=== PATIENT | female | born 1995 ===

== ENCOUNTER 2021-08-27 08:00 | Inpatient (IN) | payer BC, MEDICAID ==
[2021-08-28] MEDS ORDERED: Sodium Chloride 0.9% 20 ML SDV IV PRN (09:48)
[2021-08-28] MEDS ORDERED: Sodium Chloride 0.9% 2.5 ML Syringe FLUSH PRN (09:48)
[2021-08-28] MEDS ORDERED: ceFAZolin 2 GM in Premix Bag 1 BAG IV ONE (09:48)
[2021-08-28] MEDS ORDERED: Citric Acid/Sodium Citrate Solution 30 ML Cup PO ONE (09:48)
[2021-08-28] MEDS ORDERED: Sodium Chloride 0.9% 10 ML Syringe FLUSH PRN (09:48)
[2021-08-28] MEDS ORDERED: Octyl 2-Cyanoacrylate 1 Tube ONE (09:58)
[2021-08-28] MEDS ORDERED: Lactated Ringers 1,000 ML IV SCH ×2 (10:00→13:45)
[2021-08-28] MEDS ORDERED: Oxytocin/0.9 % Sodium Chloride 30 UNIT/500 ML BAG IV SCH (10:00)
[2021-08-28] MEDS ORDERED: fentaNYL 100 MCG/2 ML SDV ONE ×2 (11:44→12:44)
[2021-08-28] MEDS ORDERED: Famotidine 20 MG/2 ML SDV ONE (11:48)
[2021-08-28] MEDS ORDERED: Dexamethasone 4 MG/ML SDV ONE (11:48)
[2021-08-28] MEDS ORDERED: Ondansetron 4 MG/2 ML SDV ONE ×2 (11:48→13:16)
--- NOTE | 2021-08-28 12:01 | PCM.LDHP ---
L&D History of Present Illness - General Date of Service: 08/28/21 Admit Problem/Dx: Patient Status Order with Admit Dx/Problem 08/28/21 09:49 Patient Status [ADT] Routine Admission Diagnosis/Problem Admission Diagnosis/Problem Source of Information: Patient History Limitations: Reports: No Limitations - History of Present Illness Introduction:: 25yo @39w2d here for scheduled RLTCS. Patient has a h/o for CPD. This was otherwise unremarkable - Related Data Allergies/Adverse Reactions: Allergies Allergy/AdvReac Type Severity Reaction Status Date / Time No Known Allergies Allergy Verified 08/25/21 08:36 Home Medications: Home Meds Pnv No.95/Ferrous Fum/Folic AC [ Vitamin Tablet] 1 tab PO DAILY 08/25/21 [History] Past Medical History - Past Health History Medical/Surgical History: Denies Medical/Surgical History HEENT History: Reports: Other (See Below) Other HEENT History: wears glasses [employer] History: Reports: - Past Surgical History Head Surgeries/Procedures: Reports: None Female Surgical History: Reports: Section Social & Family History - Tobacco Use Tobacco Use Status *Q: Never Tobacco User - Recreational Drug Use Recreational Drug Use: No Drug Use in Last 12 Months: No H&P Review of Systems - Review of Systems: Review Of Systems: See Below General: Reports: No Symptoms HEENT: Reports: No Symptoms Pulmonary: Reports: No Symptoms Cardiovascular: Reports: No Symptoms Gastrointestinal: Reports: No Symptoms Genitourinary: Reports: No Symptoms Musculoskeletal: Reports: No Symptoms Skin: Reports: No Symptoms Psychiatric: Reports: No Symptoms Neurological: Reports: No Symptoms Hematologic/Lymphatic: Reports: No Symptoms Immunologic: Reports: No Symptoms L&D Exam - Exam Exam: See Below - Vital Signs Weight: 72.575 kg - OB Specific Contraction Intensity: Irritability Estimated Weight: 7 - Exam General: Alert, Oriented Lungs: Normal Respiratory Effort Cardiovascular: Regular Rate GI/Abdominal Exam: Soft, Non-Tender Extremities: Normal Inspection Psychiatric: Alert, Normal Affect, Normal Mood - Patient Data Lab Results Last 24 hrs: Laboratory Results - last 24 hr 08/28/21 08/28/21 Range/Units 10:30 10:30 WBC 11.05 H (4.0-11.0) K/uL RBC 3.95 L (4.30-5.90) M/uL Hgb 9.7 L (12.0-16.0) g/dL Hct 29.9 L (36.0-46.0) % MCV 75.7 L (80.0-98.0) fL MCH 24.6 L (27.0-32.0) pg MCHC 32.4 (31.0-37.0) g/dL RDW Std Deviation 40.3 (28.0-62.0) fl RDW Coeff of Gracia 15 (11.0-15.0) % Plt Count 273 (150-400) K/uL MPV 10.10 (7.40-12.00) fL Nucleated RBC % 0.0 /100WBC Nucleated RBCs # 0 K/uL Blood Type O POSITIVE Antibody Screen NEGATIVE Crossmatch See Detail Result Diagrams: 08/28/21 10:30 - Problem List (1) Term SNOMED Code(s): 94958095 ICD Code: Z34.90 - ENCNTR FOR SUPRVSN OF NORMAL , UNSP, UNSP TRIMESTER Status: Acute Current Visit: Yes (2) History of SNOMED Code(s): 949579559 ICD Code: Z98.891 - HISTORY OF UTERINE SCAR FROM PREVIOUS SURGERY Status: Acute Current Visit: Yes Problem List Initiated/Reviewed/Updated: Yes Orders Last 24hrs: Active Orders 24 hr Category Date Time Status Patient Status [ADT] Routine ADT 08/28/21 09:49 Active Antiembolic Devices [RC] PER UNIT ROUTINE Care 08/28/21 09:50 Active Insert Urinary Catheter [OM.PC] Routine Care 08/28/21 09:49 Ordered Notify Provider Vital Signs [RC] PRN Care 08/28/21 09:48 Active Procedure Site Prep Instruct [RC] ASDIRECTED Care 08/28/21 09:49 Active Up ad Farzaneh [RC] ASDIRECTED Care 08/28/21 09:49 Active Urinary Catheter Assessment [RC] ASDIRECTED Care 08/28/21 09:50 Active Verify Patient Consent Obtain [RC] ASDIRECTED Care 08/28/21 09:49 Active Vital Signs [RC] PER UNIT ROUTINE Care 08/28/21 09:49 Active CORONAVIRUS COVID-19 MICAH [MOLEC] Stat Lab 08/28/21 10:35 Received RED BLOOD CELLS LP [BBK] Routine Lab 08/28/21 10:30 Results RPR (SYPHILIS SERO) W/ RFLX [REF] Routine Lab 08/28/21 10:30 Received TYPE AND SCREEN [BBK] Routine Lab 08/28/21 10:30 Results Lactated Ringers [Ringers, Lactated] 1,000 ml Med 08/28/21 10:00 Active IV BOLUS Oxytocin/0.9 % Sodium Chloride [Oxytocin 30 Unit in NS Med 08/28/21 10:00 Active 0.9% 500 ML Premix] 30 unit in 500 ml IV TITRATE Sodium Chloride 0.9% [Normal Saline] Med 08/28/21 09:48 Active 10 ml IV ASDIRECTED PRN Sodium Chloride 0.9% [Saline Flush] Med 08/28/21 09:48 Active 10 ml FLUSH ASDIRECTED PRN Sodium Chloride 0.9% [Saline Flush] Med 08/28/21 09:48 Active 2.5 ml FLUSH ASDIRECTED PRN Peripheral IV Insertion Adult [OM.PC] Routine Oth 08/28/21 09:49 Ordered Schedule Procedure [COMM] Per Unit Routine Oth 08/28/21 09:49 Ordered Sequential Compression Device [OM.PC] Routine Oth 08/28/21 09:49 Ordered Resuscitation Status Routine Resus Stat 08/28/21 09:48 Ordered Medication Orders Oxytocin/Sodium Chloride (Oxytocin 30 Unit In Ns 0.9% 500 Ml Premix) 30 unit in 500 mls @ 250 mls/hr IV TITRATE EBONIE Lactated Ringer's (Ringers, Lactated) 1,000 mls @ 500 mls/hr IV BOLUS EBONIE Last Admin: 08/28/21 10:40 Dose: 500 mls/hr Documented by: JEM Sodium Chloride (Sodium Chloride 0.9% 10 Ml Syringe) 10 ml FLUSH ASDIRECTED PRN PRN Reason: Keep Vein Open Sodium Chloride (Sodium Chloride 0.9% 2.5 Ml Syringe) 2.5 ml FLUSH ASDIRECTED PRN PRN Reason: Keep Vein Open Sodium Chloride (Sodium Chloride 0.9% 20 Ml Sdv) 10 ml IV ASDIRECTED PRN PRN Reason: IV Use Assessment/Plan Comment:: 25yo @39w2d here for scheduled RLTCS P: Consents signed Orders placed
[2021-08-28] MEDS ORDERED: diphenhydrAMINE 50 MG/ML SDV ONE (13:16)
[2021-08-28] MEDS ORDERED: Glycopyrrolate 0.2 MG/ML SDV ONE (13:16)
[2021-08-28] MEDS ORDERED: ePHEDrine 50 MG/ML SDV ONE (13:16)
[2021-08-28] MEDS ORDERED: Metoclopramide 10 MG/2 ML SDV ONE (13:16)
[2021-08-28] MEDS ORDERED: EPINEPHrine 1 MG/1 ML Amp ONE (13:17)
[2021-08-28] MEDS ORDERED: Water For Injection, Sterile 40 ML ONE (13:17)
[2021-08-28] MEDS ORDERED: Lanolin 100% Cream 7 GM Tube TOP PRN (13:31)
[2021-08-28] MEDS ORDERED: Oxytocin 10 Units/1 ML SDV IM PRN (13:31)
[2021-08-28] MEDS ORDERED: Bisacodyl 10 MG Supp RECTAL PRN (13:31)
[2021-08-28] MEDS ORDERED: Methylergonovine 0.2 MG/1 ML Amp IM PRN (13:31)
[2021-08-28] MEDS ORDERED: Misoprostol 200 MCG Tab RECTAL PRN (13:31)
[2021-08-28] MEDS ORDERED: Tranexamic Acid 1,000 MG in Sodium Chloride 0.9% 100 ML IV PRN (13:31)
[2021-08-28] MEDS ORDERED: Ondansetron 4 MG/2 ML SDV IVPUSH PRN (13:31)
[2021-08-28] MEDS ORDERED: Acetaminophen/oxyCODONE 325-5 MG Tab PO PRN ×2 (13:31)
[2021-08-28] MEDS ORDERED: diphenhydrAMINE 50 MG/ML SDV IVPUSH PRN (13:31)
--- NOTE | 2021-08-28 13:41 | PCM.DEL ---
L & D Note - General Info Date of Service: 08/28/21 Mother's Due Date: 09/02/21 - Delivery Note Delivery Outcome: Livebirth Delivery Method: Repeat Presentation: Vertex Nuchal Cord: Present Anesthesia Type: Spinal Amniotic Fluid Description: Clear Placenta: Intact, Spontaneous Estimated Blood Loss: 400 - General Info Date of Service: 08/28/21 Admission Dx/Problem (Free Text): Patient Status Order with Admit Dx/Problem 08/28/21 09:49 Patient Status [ADT] Routine Admission Diagnosis/Problem Admission Diagnosis/Problem Subjective Update: Mom in recovery room, doing well Functional Status: Reports: Pain Controlled - Review of Systems General: Reports: No Symptoms HEENT: Reports: No Symptoms Pulmonary: Reports: No Symptoms Cardiovascular: Reports: No Symptoms Gastrointestinal: Reports: No Symptoms Genitourinary: Reports: No Symptoms Musculoskeletal: Reports: No Symptoms Skin: Reports: No Symptoms Neurological: Reports: No Symptoms Psychiatric: Reports: No Symptoms - Patient Data Weight - Most Recent: 72.575 kg Lab Results Last 24 Hours: Laboratory Results - last 24 hr 08/28/21 08/28/21 08/28/21 Range/Units 10:30 10:30 10:35 WBC 11.05 H (4.0-11.0) K/uL RBC 3.95 L (4.30-5.90) M/uL Hgb 9.7 L (12.0-16.0) g/dL Hct 29.9 L (36.0-46.0) % MCV 75.7 L (80.0-98.0) fL MCH 24.6 L (27.0-32.0) pg MCHC 32.4 (31.0-37.0) g/dL RDW Std Deviation 40.3 (28.0-62.0) fl RDW Coeff of Gracia 15 (11.0-15.0) % Plt Count 273 (150-400) K/uL MPV 10.10 (7.40-12.00) fL Nucleated RBC % 0.0 /100WBC Nucleated RBCs # 0 K/uL SARS-CoV-2 RNA (MICAH) NEGATIVE (NEGATIVE) Blood Type O POSITIVE Antibody Screen NEGATIVE Crossmatch See Detail Med Orders - Current: Current Medications Oxytocin/Sodium Chloride (Oxytocin 30 Unit In Ns 0.9% 500 Ml Premix) 30 unit in 500 mls @ 250 mls/hr IV TITRATE [facility] Lactated Ringer's (Ringers, Lactated) 1,000 mls @ 500 mls/hr IV BOLUS [facility] Last Admin: 08/28/21 10:40 Dose: 500 mls/hr Documented by: Sodium Chloride (Sodium Chloride 0.9% 10 Ml Syringe) 10 ml FLUSH ASDIRECTED PRN PRN Reason: Keep Vein Open Sodium Chloride (Sodium Chloride 0.9% 2.5 Ml Syringe) 2.5 ml FLUSH ASDIRECTED PRN PRN Reason: Keep Vein Open Sodium Chloride (Sodium Chloride 0.9% 20 Ml Sdv) 10 ml IV ASDIRECTED PRN PRN Reason: IV Use Discontinued Medications Citric Acid/Sodium Citrate (Citric Acid/Sodium Citrate Solution 30 Ml Cup) 30 ml PO ONETIME ONE Stop: 08/28/21 09:49 Dexamethasone (Dexamethasone 4 Mg/Ml Sdv) Confirm Administered Dose 8 mg .ROUTE .STK-MED ONE Stop: 08/28/21 11:49 Diphenhydramine HCl (Diphenhydramine 50 Mg/Ml Sdv) Confirm Administered Dose 50 mg .ROUTE .STK-MED ONE Stop: 08/28/21 13:17 Ephedrine Sulfate (Ephedrine 50 Mg/Ml Sdv) Confirm Administered Dose 50 mg .ROUTE .STK-MED ONE Stop: 08/28/21 13:17 Epinephrine HCl (Epinephrine 1 Mg/1 Ml Amp) Confirm Administered Dose 1 mg .ROUTE .STK-MED ONE Stop: 08/28/21 13:18 Famotidine (Famotidine 20 Mg/2 Ml Sdv) Confirm Administered Dose 20 mg .ROUTE .STK-MED ONE Stop: 08/28/21 11:49 Fentanyl (Fentanyl 100 Mcg/2 Ml Sdv) Confirm Administered Dose 100 mcg .ROUTE .STK-MED ONE Stop: 08/28/21 11:45 Fentanyl (Fentanyl 100 Mcg/2 Ml Sdv) Confirm Administered Dose 100 mcg .ROUTE .STK-MED ONE Stop: 08/28/21 12:45 Glycopyrrolate (Glycopyrrolate 0.2 Mg/Ml Sdv) Confirm Administered Dose 0.4 mg .ROUTE .STK-MED ONE Stop: 08/28/21 13:17 Cefazolin Sodium/Dextrose 2 gm (/ Premix) 50 mls @ 100 mls/hr IV ONETIME ONE Stop: 08/28/21 10:17 Sterile Water (Sterile Water For Injection) Confirm Administered Dose 40 mls @ as directed .ROUTE .STK-MED ONE Stop: 08/28/21 13:18 Acetaminophen (Ofirmev 1000 Mg/100 Ml) Confirm Administered Dose 100 mls @ as directed .ROUTE .STK-MED ONE Stop: 08/28/21 13:18 Cefazolin Sodium/Dextrose (Ancef) Confirm Administered Dose 50 mls @ as directed .ROUTE .STK-MED ONE Stop: 08/28/21 13:18 Metoclopramide HCl (Metoclopramide 10 Mg/2 Ml Sdv) Confirm Administered Dose 10 mg .ROUTE .STK-MED ONE Stop: 08/28/21 13:17 Miscellaneous Medication (Phenylephrine Hcl In 0.9% Nacl 1 Mg/10 Ml Syringe) Confirm Administered Dose 1 mg .ROUTE .STK-MED ONE Stop: 08/28/21 13:17 Octyl Cyanoacrylate (Octyl 2-Cyanoacrylate 1 Tube) Confirm Administered Dose 1 applic .ROUTE .STK-MED ONE Stop: 08/28/21 09:59 Ondansetron HCl (Ondansetron 4 Mg/2 Ml Sdv) Confirm Administered Dose 4 mg .ROUTE .STK-MED ONE Stop: 08/28/21 11:49 Ondansetron HCl (Ondansetron 4 Mg/2 Ml Sdv) Confirm Administered Dose 4 mg .ROUTE .STK-MED ONE Stop: 08/28/21 13:17 - Exam General: Alert, Oriented Lungs: Normal Respiratory Effort Cardiovascular: Regular Rate GI/Abdominal Exam: Soft, Non-Tender Extremities: Normal Inspection Psy/Mental Status: Alert, Normal Affect - Problem List & Annotations (1) History of SNOMED Code(s): 606067993 Code(s): Z98.891 - HISTORY OF UTERINE SCAR FROM PREVIOUS SURGERY Status: Acute Current Visit: Yes (2) Term delivered SNOMED Code(s): 05896391, 109795077 Code(s): O80 - ENCOUNTER FOR FULL-TERM UNCOMPLICATED DELIVERY Status: Acute Current Visit: Yes - Problem List Review Problem List Initiated/Reviewed/Updated: Yes - My Orders Last 24 Hours: My Active Orders 08/28/21 09:48 Notify Provider Vital Signs [RC] PRN Sodium Chloride 0.9% [Normal Saline] 10 ml IV ASDIRECTED PRN Sodium Chloride 0.9% [Saline Flush] 10 ml FLUSH ASDIRECTED PRN Sodium Chloride 0.9% [Saline Flush] 2.5 ml FLUSH ASDIRECTED PRN Resuscitation Status Routine 08/28/21 09:49 Insert Urinary Catheter [OM.PC] Routine Up ad Farzaneh [RC] ASDIRECTED Verify Patient Consent Obtain [RC] ASDIRECTED Peripheral IV Insertion Adult [OM.PC] Routine Schedule Procedure [COMM] Per Unit Routine Sequential Compression Device [OM.PC] Routine 08/28/21 09:50 Antiembolic Devices [RC] PER UNIT ROUTINE Urinary Catheter Assessment [RC] ASDIRECTED 08/28/21 10:00 Lactated Ringers [Ringers, Lactated] 1,000 ml IV BOLUS Oxytocin/0.9 % Sodium Chloride [Oxytocin 30 Unit in NS 0.9% 500 ML Premix] 30 unit in 500 ml IV TITRATE 08/28/21 10:30 RPR (SYPHILIS SERO) W/ RFLX [REF] Routine TYPE AND SCREEN [BBK] Routine 08/28/21 13:31 Notify Provider Intake and Out [RC] ASDIRECTED Notify Provider Vital Signs [RC] ASDIRECTED Acetaminophen/oxyCODONE [Percocet 325-5 MG] 1 tab PO Q4H PRN Acetaminophen/oxyCODONE [Percocet 325-5 MG] 2 tab PO Q4H PRN Ibuprofen [Motrin] 800 mg PO Q8H PRN Lanolin [Lansinoh HPA] See Dose Instructions TOP ASDIRECTED PRN Methylergonovine [Methergine] 0.2 mg IM ONETIME PRN Ondansetron [Zofran] 4 mg IVPUSH Q4H PRN Oxytocin [Pitocin] 10 unit IM ASDIRECTED PRN Tranexamic Acid [Cyklokapron] 1,000 mg Sodium Chloride 0.9% [Normal Saline] 100 ml IV ONETIME bisacodyL [Dulcolax] 10 mg RECTAL ONETIME PRN diphenhydrAMINE [Benadryl] 25 mg IVPUSH Q6H PRN miSOPROStoL [Cytotec] 1,000 mcg RECTAL ONETIME PRN 08/28/21 13:32 Patient Status [ADT] Routine Ambulate [RC] PER UNIT ROUTINE Communication Order [RC] PER UNIT ROUTINE Communication Order [RC] PER UNIT ROUTINE Communication Order [RC] Per Unit Routine May Shower [RC] ASDIRECTED RT Incentive Spirometry [RC] Q2HWA Vital Signs [RC] PER UNIT ROUTINE Assess Lochia [WOMSER] Per Unit Routine Assess Uterine Involution [WOMSER] Per Unit Routine Breast Pump [WOMSER] Per Unit Routine Peripheral IV Discontinue [OM.PC] Routine Sequential Compression Device [OM.PC] Per Unit Routine 08/28/21 13:33 Antiembolic Devices [RC] PER UNIT ROUTINE 08/28/21 13:45 Ketorolac [Toradol] 30 mg IVPUSH Q6H Lactated Ringers @ 125 MLS/HR(1000ml) Lactated Ringers [Ringers, Lactated] 1,000 ml IV ASDIRECTED Oxytocin/Lactated Ringers [Pitocin in LR 30 Units/500 ML] 30 unit in 500 ml IV TITRATE 08/28/21 21:00 Docusate Sodium [Colace] 100 mg PO BID 08/29/21 05:11 HEMOGLOBIN/HEMATOCRIT,HH [HEME] Timed - Plan Plan:: 25yo G2 now P2002 s/p uncomplicated RLTCS @39w2d Mom is doing well P: Routine care
[2021-08-28] MEDS ORDERED: Oxytocin/Lactated Ringers 30 UNIT/500 ML BAG IV SCH (13:45)
[2021-08-28] MEDS: Ketorolac 30 MG/ML SDV IVPUSH SCH ×2 (14:14→19:53)
--- NOTE | 2021-08-28 14:46 | PCM.PREANE ---
Preanesthetic Assessment - Procedure Proposed Procedure: under spinal ve GETA - Anesthesia/Transfusion/Family Hx Anesthesia History: Prior Anesthesia Without Reaction Family History of Anesthesia Reaction: No Transfusion History: No Prior Transfusion(s) - Review of Systems General: No Symptoms Pulmonary: No Symptoms Cardiovascular: No Symptoms, Other (Anemia) Gastrointestinal: No Symptoms Neurological: No Symptoms Other: Reports: None - Physical Assessment NPO Status Date: 08/27/21 NPO Status Time: 00:00 Height: 1.55 m Weight: 72.575 kg ASA Class: 2 Mental Status: Alert & Oriented x3 Airway Class: Mallampati = 2 Dentition: Reports: Normal Dentition Thyro-Mental Finger Breadths: 3 Mouth Opening Finger Breadths: 3 ROM/Head Extension: Full Lungs: Clear to Auscultation, Normal Respiratory Effort Cardiovascular: Regular Rate, Regular Rhythm - Lab Values: Laboratory Last Values WBC 11.05 K/uL (4.0-11.0) H 08/28/21 10:30 RBC 3.95 M/uL (4.30-5.90) L 08/28/21 10:30 Hgb 9.7 g/dL (12.0-16.0) L 08/28/21 10:30 Hct 29.9 % (36.0-46.0) L 08/28/21 10:30 MCV 75.7 fL (80.0-98.0) L 08/28/21 10:30 MCH 24.6 pg (27.0-32.0) L 08/28/21 10:30 MCHC 32.4 g/dL (31.0-37.0) 08/28/21 10:30 RDW Std Deviation 40.3 fl (28.0-62.0) 08/28/21 10:30 RDW Coeff of Gracia 15 % (11.0-15.0) 08/28/21 10:30 Plt Count 273 K/uL (150-400) 08/28/21 10:30 MPV 10.10 fL (7.40-12.00) 08/28/21 10:30 Nucleated RBC % 0.0 /100WBC 08/28/21 10:30 Nucleated RBCs # 0 K/uL 08/28/21 10:30 SARS-CoV-2 RNA (MICAH) NEGATIVE (NEGATIVE) 08/28/21 10:35 Blood Type O POSITIVE 08/28/21 10:30 Antibody Screen NEGATIVE 08/28/21 10:30 Crossmatch See Detail 08/28/21 10:30 - Allergies Allergies/Adverse Reactions: Allergies Allergy/AdvReac Type Severity Reaction Status Date / Time No Known Allergies Allergy Verified 08/25/21 08:36 - Blood Blood Available: Yes Product(s) Available: PRBC (Type and cross 2 units) - Anesthesia Plan Pre-Op Medication Ordered: None - Acknowledgements Anesthesia Type Planned: Spinal Pt an Appropriate Candidate for the Planned Anesthesia: Yes Alternatives and Risks of Anesthesia Discussed w Pt/Guardian: Yes Pt/Guardian Understands and Agrees with Anesthesia Plan: Yes PreAnesthesia Questionnaire - Past Health History Medical/Surgical History: Denies Medical/Surgical History HEENT History: Reports: Other (See Below) Other HEENT History: wears glasses [employer] History: Reports: - Past Surgical History Head Surgeries/Procedures: Reports: None Female Surgical History: Reports: Section - SUBSTANCE USE Tobacco Use Status *Q: Never Tobacco User Recreational Drug Use History: No - HOME MEDS Home Medications: Home Meds Pnv No.95/Ferrous Fum/Folic AC [ Vitamin Tablet] 1 tab PO DAILY 08/25/21 [History] - CURRENT (IN HOUSE) MEDS Current Meds: Current Medications Bisacodyl (Bisacodyl 10 Mg Supp) 10 mg RECTAL ONETIME PRN PRN Reason: Constipation Diphenhydramine HCl (Diphenhydramine 50 Mg/Ml Sdv) 25 mg IVPUSH Q6H PRN PRN Reason: Itching or Nausea Docusate Sodium (Docusate Sodium 100 Mg Cap) 100 mg PO BID EBONIE Emollient Ointment (Lanolin 100% Cream 7 Gm Tube) 0 gm TOP ASDIRECTED PRN PRN Reason: Sore Nipples Oxytocin/Sodium Chloride (Oxytocin 30 Unit In Ns 0.9% 500 Ml Premix) 30 unit in 500 mls @ 250 mls/hr IV TITRATE EBONIE Lactated Ringer's (Ringers, Lactated) 1,000 mls @ 500 mls/hr IV BOLUS EBONIE Last Admin: 08/28/21 10:40 Dose: 500 mls/hr Documented by: Lactated Ringer's (Ringers, Lactated) 1,000 mls @ 125 mls/hr IV ASDIRECTED [facility] Oxytocin/Lactated Ringer's (Pitocin In Lr 30 Units/500 Ml) 30 unit in 500 mls @ 2 mls/hr IV TITRATE EBONIE; Protocol Tranexamic Acid 1,000 mg/ (Sodium Chloride) 110 mls @ 660 mls/hr IV ONETIME PRN PRN Reason: Bleeding Ibuprofen (Ibuprofen 800 Mg Tab) 800 mg PO Q8H PRN PRN Reason: Cramping Ketorolac Tromethamine (Ketorolac 30 Mg/Ml Sdv) 30 mg IVPUSH Q6H [facility] Stop: 08/29/21 13:46 Last Admin: 08/28/21 14:14 Dose: 30 mg Documented by: Methylergonovine Maleate (Methylergonovine 0.2 Mg/1 Ml Amp) 0.2 mg IM ONETIME PRN PRN Reason: Excessive Vaginal Bleeding Misoprostol (Misoprostol 200 Mcg Tab) 1,000 mcg RECTAL ONETIME PRN PRN Reason: excessive bleeding Ondansetron HCl (Ondansetron 4 Mg/2 Ml Sdv) 4 mg IVPUSH Q4H PRN PRN Reason: Nausea/Vomiting Oxycodone/Acetaminophen (Acetaminophen/Oxycodone 325-5 Mg Tab) 1 tab PO Q4H PRN PRN Reason: Pain (severe 7-10) Oxycodone/Acetaminophen (Acetaminophen/Oxycodone 325-5 Mg Tab) 2 tab PO Q4H PRN PRN Reason: Pain (severe 7-10) Oxytocin (Oxytocin 10 Units/1 Ml Sdv) 10 unit IM ASDIRECTED PRN PRN Reason: Excessive Vaginal Bleeding Sodium Chloride (Sodium Chloride 0.9% 10 Ml Syringe) 10 ml FLUSH ASDIRECTED PRN PRN Reason: Keep Vein Open Sodium Chloride (Sodium Chloride 0.9% 2.5 Ml Syringe) 2.5 ml FLUSH ASDIRECTED PRN PRN Reason: Keep Vein Open Sodium Chloride (Sodium Chloride 0.9% 20 Ml Sdv) 10 ml IV ASDIRECTED PRN PRN Reason: IV Use Discontinued Medications Citric Acid/Sodium Citrate (Citric Acid/Sodium Citrate Solution 30 Ml Cup) 30 ml PO ONETIME ONE Stop: 08/28/21 09:49 Dexamethasone (Dexamethasone 4 Mg/Ml Sdv) Confirm Administered Dose 8 mg .ROUTE .STK-MED ONE Stop: 08/28/21 11:49 Diphenhydramine HCl (Diphenhydramine 50 Mg/Ml Sdv) Confirm Administered Dose 50 mg .ROUTE .STK-MED ONE Stop: 08/28/21 13:17 Ephedrine Sulfate (Ephedrine 50 Mg/Ml Sdv) Confirm Administered Dose 50 mg .ROUTE .STK-MED ONE Stop: 08/28/21 13:17 Epinephrine HCl (Epinephrine 1 Mg/1 Ml Amp) Confirm Administered Dose 1 mg .ROUTE .STK-MED ONE Stop: 08/28/21 13:18 Famotidine (Famotidine 20 Mg/2 Ml Sdv) Confirm Administered Dose 20 mg .ROUTE .STK-MED ONE Stop: 08/28/21 11:49 Fentanyl (Fentanyl 100 Mcg/2 Ml Sdv) Confirm Administered Dose 100 mcg .ROUTE .STK-MED ONE Stop: 08/28/21 11:45 Fentanyl (Fentanyl 100 Mcg/2 Ml Sdv) Confirm Administered Dose 100 mcg .ROUTE .STK-MED ONE Stop: 08/28/21 12:45 Glycopyrrolate (Glycopyrrolate 0.2 Mg/Ml Sdv) Confirm Administered Dose 0.4 mg .ROUTE .STK-MED ONE Stop: 08/28/21 13:17 Cefazolin Sodium/Dextrose 2 gm (/ Premix) 50 mls @ 100 mls/hr IV ONETIME ONE Stop: 08/28/21 10:17 Sterile Water (Sterile Water For Injection) Confirm Administered Dose 40 mls @ as directed .ROUTE .STK-MED ONE Stop: 08/28/21 13:18 Acetaminophen (Ofirmev 1000 Mg/100 Ml) Confirm Administered Dose 100 mls @ as directed .ROUTE .STK-MED ONE Stop: 08/28/21 13:18 Cefazolin Sodium/Dextrose (Ancef) Confirm Administered Dose 50 mls @ as directed .ROUTE .STK-MED ONE Stop: 08/28/21 13:18 Metoclopramide HCl (Metoclopramide 10 Mg/2 Ml Sdv) Confirm Administered Dose 10 mg .ROUTE .STK-MED ONE Stop: 08/28/21 13:17 Miscellaneous Medication (Phenylephrine Hcl In 0.9% Nacl 1 Mg/10 Ml Syringe) C onfirm Administered Dose 1 mg .ROUTE .STK-MED ONE Stop: 08/28/21 13:17 Octyl Cyanoacrylate (Octyl 2-Cyanoacrylate 1 Tube) Confirm Administered Dose 1 applic .ROUTE .STK-MED ONE Stop: 08/28/21 09:59 Ondansetron HCl (Ondansetron 4 Mg/2 Ml Sdv) Confirm Administered Dose 4 mg .ROUTE .STK-MED ONE Stop: 08/28/21 11:49 Ondansetron HCl (Ondansetron 4 Mg/2 Ml Sdv) Confirm Administered Dose 4 mg .ROUTE .STK-MED ONE Stop: 08/28/21 13:17
--- NOTE | 2021-08-28 14:47 | PCM.SN.2 ---
- Free Text/Narrative Note: Bilateral TAP block performed under ultrasound guidance with 30 ml 0.25% Ropivacaine on left and 25 ml on right. Patient tolerated well.
--- NOTE | 2021-08-28 14:48 | PCM.POSTAN ---
POST ANESTHESIA ASSESSMENT - MENTAL STATUS Mental Status: Alert, Oriented - RESPIRATORY Respiratory Status: Respiratory Rate WNL, Airway Patent, O2 Saturation Stable - CARDIOVASCULAR CV Status: Pulse Rate WNL, Blood Pressure Stable - GASTROINTESTINAL GI Status: No Symptoms - POST OP HYDRATION Hydration Status: Adequate & Stable
--- NOTE | 2021-08-28 14:48 | PCM48HPAN ---
Post Anesthesia Note - EVALUATION WITHIN 48HRS OF ANESTHETIC Vital Signs in Normal Range: Yes Patient Participated in Evaluation: Yes Respiratory Function Stable: Yes Airway Patent: Yes Cardiovascular Function Stable: Yes Hydration Status Stable: Yes Pain Control Satisfactory: Yes Nausea and Vomiting Control Satisfactory: Yes Mental Status Recovered: Yes
[2021-08-28] MEDS: Docusate Sodium 100 MG Cap PO SCH (20:01)
[2021-08-29] MEDS: Ketorolac 30 MG/ML SDV IVPUSH SCH ×3 (01:43→14:44)
[2021-08-29] MEDS: Docusate Sodium 100 MG Cap PO SCH (08:01)
--- NOTE | 2021-08-29 17:28 | PCM.PNPP ---
- General Info Date of Service: 08/29/21 Admission Dx/Problem (Free Text): Patient Status Order with Admit Dx/Problem 08/28/21 09:49 Patient Status [ADT] Routine Admission Diagnosis/Problem Admission Diagnosis/Problem Subjective Update: Mom is doing well Functional Status: Reports: Pain Controlled - Review of Systems General: Reports: No Symptoms HEENT: Reports: No Symptoms Pulmonary: Reports: No Symptoms Cardiovascular: Reports: No Symptoms Gastrointestinal: Reports: No Symptoms Genitourinary: Reports: No Symptoms Musculoskeletal: Reports: No Symptoms Skin: Reports: No Symptoms Neurological: Reports: No Symptoms Psychiatric: Reports: No Symptoms - General Info Date of Service: 08/29/21 - Patient Data Vital Signs - Most Recent: Last Vital Signs Temp 97.8 F 08/29/21 16:00 Pulse 72 08/29/21 16:00 Resp 18 08/29/21 16:00 BP 95/56 L 08/29/21 16:00 Pulse Ox 98 08/29/21 16:00 Weight - Most Recent: 72.575 kg I&O - Last 24 Hours: Intake & Output 08/29/21 08/29/21 08/29/21 06:59 14:59 22:59 Intake Total 1060 Output Total 2650 400 Balance -1590 -400 Lab Results - Last 24 Hours: Laboratory Results - last 24 hr 08/29/21 Range/Units 05:04 Hgb 7.6 L (12.0-16.0) g/dL Hct 23.1 L (36.0-46.0) % Med Orders - Current: Current Medications Bisacodyl (Bisacodyl 10 Mg Supp) 10 mg RECTAL ONETIME PRN PRN Reason: Constipation Diphenhydramine HCl (Diphenhydramine 50 Mg/Ml Sdv) 25 mg IVPUSH Q6H PRN PRN Reason: Itching or Nausea Docusate Sodium (Docusate Sodium 100 Mg Cap) 100 mg PO BID [facility] Last Admin: 08/29/21 08:01 Dose: 100 mg Documented by: Emollient Ointment (Lanolin 100% Cream 7 Gm Tube) 0 gm TOP ASDIRECTED PRN PRN Reason: Sore Nipples Oxytocin/Sodium Chloride (Oxytocin 30 Unit In Ns 0.9% 500 Ml Premix) 30 unit in 500 mls @ 250 mls/hr IV TITRATE [facility] Lactated Ringer's (Ringers, Lactated) 1,000 mls @ 500 mls/hr IV BOLUS [facility] Last Admin: 08/28/21 10:40 Dose: 500 mls/hr Documented by: Lactated Ringer's (Ringers, Lactated) 1,000 mls @ 125 mls/hr IV ASDIRECTED [facility] Last Admin: 08/28/21 16:54 Dose: 125 mls/hr Documented by: Oxytocin/Lactated Ringer's (Pitocin In Lr 30 Units/500 Ml) 30 unit in 500 mls @ 2 mls/hr IV TITRATE [facility]; Protocol Tranexamic Acid 1,000 mg/ (Sodium Chloride) 110 mls @ 660 mls/hr IV ONETIME PRN PRN Reason: Bleeding Ibuprofen (Ibuprofen 800 Mg Tab) 800 mg PO Q8H PRN PRN Reason: Cramping Methylergonovine Maleate (Methylergonovine 0.2 Mg/1 Ml Amp) 0.2 mg IM ONETIME PRN PRN Reason: Excessive Vaginal Bleeding Misoprostol (Misoprostol 200 Mcg Tab) 1,000 mcg RECTAL ONETIME PRN PRN Reason: excessive bleeding Ondansetron HCl (Ondansetron 4 Mg/2 Ml Sdv) 4 mg IVPUSH Q4H PRN PRN Reason: Nausea/Vomiting Oxycodone/Acetaminophen (Acetaminophen/Oxycodone 325-5 Mg Tab) 1 tab PO Q4H PRN PRN Reason: Pain (severe 7-10) Oxycodone/Acetaminophen (Acetaminophen/Oxycodone 325-5 Mg Tab) 2 tab PO Q4H PRN PRN Reason: Pain (severe 7-10) Oxytocin (Oxytocin 10 Units/1 Ml Sdv) 10 unit IM ASDIRECTED PRN PRN Reason: Excessive Vaginal Bleeding Sodium Chloride (Sodium Chloride 0.9% 10 Ml Syringe) 10 ml FLUSH ASDIRECTED PRN PRN Reason: Keep Vein Open Sodium Chloride (Sodium Chloride 0.9% 2.5 Ml Syringe) 2.5 ml FLUSH ASDIRECTED PRN PRN Reason: Keep Vein Open Sodium Chloride (Sodium Chloride 0.9% 20 Ml Sdv) 10 ml IV ASDIRECTED PRN PRN Reason: IV Use Discontinued Medications Citric Acid/Sodium Citrate (Citric Acid/Sodium Citrate Solution 30 Ml Cup) 30 ml PO ONETIME ONE Stop: 08/28/21 09:49 Dexamethasone (Dexamethasone 4 Mg/Ml Sdv) Confirm Administered Dose 8 mg .ROUTE .STK-MED ONE Stop: 08/28/21 11:49 Diphenhydramine HCl (Diphenhydramine 50 Mg/Ml Sdv) Confirm Administered Dose 50 mg .ROUTE .STK-MED ONE Stop: 08/28/21 13:17 Ephedrine Sulfate (Ephedrine 50 Mg/Ml Sdv) Confirm Administered Dose 50 mg .ROUTE .STK-MED ONE Stop: 08/28/21 13:17 Epinephrine HCl (Epinephrine 1 Mg/1 Ml Amp) Confirm Administered Dose 1 mg .ROUTE .STK-MED ONE Stop: 08/28/21 13:18 Famotidine (Famotidine 20 Mg/2 Ml Sdv) Confirm Administered Dose 20 mg .ROUTE .STK-MED ONE Stop: 08/28/21 11:49 Fentanyl (Fentanyl 100 Mcg/2 Ml Sdv) Confirm Administered Dose 100 mcg .ROUTE .STK-MED ONE Stop: 08/28/21 11:45 Fentanyl (Fentanyl 100 Mcg/2 Ml Sdv) Confirm Administered Dose 100 mcg .ROUTE .STK-MED ONE Stop: 08/28/21 12:45 Glycopyrrolate (Glycopyrrolate 0.2 Mg/Ml Sdv) Confirm Administered Dose 0.4 mg .ROUTE .STK-MED ONE Stop: 08/28/21 13:17 Cefazolin Sodium/Dextrose 2 gm (/ Premix) 50 mls @ 100 mls/hr IV ONETIME ONE Stop: 08/28/21 10:17 Sterile Water (Sterile Water For Injection) Confirm Administered Dose 40 mls @ as directed .ROUTE .STK-MED ONE Stop: 08/28/21 13:18 Acetaminophen (Ofirmev 1000 Mg/100 Ml) Confirm Administered Dose 100 mls @ as directed .ROUTE .STK-MED ONE Stop: 08/28/21 13:18 Cefazolin Sodium/Dextrose (Ancef) Confirm Administered Dose 50 mls @ as directed .ROUTE .STK-MED ONE Stop: 08/28/21 13:18 Ketorolac Tromethamine (Ketorolac 30 Mg/Ml Sdv) 30 mg IVPUSH Q6H [facility] Stop: 08/29/21 13:46 Last Admin: 08/29/21 14:44 Dose: 30 mg Documented by: Metoclopramide HCl (Metoclopramide 10 Mg/2 Ml Sdv) Confirm Administered Dose 10 mg .ROUTE .STK-MED ONE Stop: 08/28/21 13:17 Miscellaneous Medication (Phenylephrine Hcl In 0.9% Nacl 1 Mg/10 Ml Syringe) Confirm Administered Dose 1 mg .ROUTE .STK-MED ONE Stop: 08/28/21 13:17 Octyl Cyanoacrylate (Octyl 2-Cyanoacrylate 1 Tube) Confirm Administered Dose 1 applic .ROUTE .STK-MED ONE Stop: 08/28/21 09:59 Ondansetron HCl (Ondansetron 4 Mg/2 Ml Sdv) Confirm Administered Dose 4 mg .ROUTE .STK-MED ONE Stop: 08/28/21 11:49 Ondansetron HCl (Ondansetron 4 Mg/2 Ml Sdv) Confirm Administered Dose 4 mg .ROUTE .STK-MED ONE Stop: 08/28/21 13:17 - Infant Interaction Disposition, : Evans in Room with Family Support Person: - Recovery Exam Fundal Tone: Firm Fundal Level: 2 Fingerbreadths Below Umbilicus Fundal Placement: Midline Lochia Amount: Scant, Small Lochia Color: Rubra/Red Perineum Description: Intact, Minimal Bruising/Swelling Episiotomy/Laceration: None Bladder Status: Indwelling Catheter in Place Urinary Elimination: Indwelling Catheter - Exam General: Alert, Oriented Lungs: Normal Respiratory Effort Cardiovascular: Regular Rate GI/Abdominal Exam: Soft, Non-Tender Extremities: Normal Inspection Psy/Mental Status: Alert, Normal Affect, Normal Mood - Problem List & Annotations (1) History of SNOMED Code(s): 368694334 Code(s): Z98.891 - HISTORY OF UTERINE SCAR FROM PREVIOUS SURGERY Status: Acute Current Visit: Yes (2) Term delivered SNOMED Code(s): 37148975, 533532401 Code(s): O80 - ENCOUNTER FOR FULL-TERM UNCOMPLICATED DELIVERY Status: Acute Current Visit: Yes - Problem List Review Problem List Initiated/Reviewed/Updated: Yes - My Orders Last 24 Hours: My Active Orders 08/28/21 21:00 Docusate Sodium [Colace] 100 mg PO BID 08/29/21 19:45 Ibuprofen [Motrin] 800 mg PO Q8H PRN - Plan Plan:: 25yo G2 now P2002 s/p uncomplicated RLTCS @39w2d POD #1 Mom is doing well P: Routine care Rh negative, rubella immune, GBS negative PO pain medication ordered PRN Regular diet as tolerated Encourage ambulation and fluid intake , nursing assistance as needed. Dispo: stable. Anticipate discharge 48hrs pending maternal/ status
--- NOTE | 2021-08-29 17:49 | PCM.DCSUM1 ---
Discharge Summary - Hospital Course Free Text/Narrative:: 25yo G2 now P2002 s/p uncomplicated RLTCS @39w2d Mom is doing well Diagnosis: Stroke: No - Discharge Data Discharge Date: 08/29/21 Discharge Disposition: Home, Self-Care 01 Condition: Good - Referral to Home Health Primary Care Physician: PCP None - Discharge Diagnosis/Problem(s) (1) History of SNOMED Code(s): 462594678 ICD Code: Z98.891 - HISTORY OF UTERINE SCAR FROM PREVIOUS SURGERY Status: Acute (2) Term delivered SNOMED Code(s): 00974367, 256812167 ICD Code: O80 - ENCOUNTER FOR FULL-TERM UNCOMPLICATED DELIVERY Status: Acute - Patient Instructions Diet: Heart Healthy Diet - Discharge Plan *PRESCRIPTION DRUG MONITORING PROGRAM REVIEWED*: Not Applicable *COPY OF PRESCRIPTION DRUG MONITORING REPORT IN PATIENT FRANCINE: Not Applicable Tobacco Cessation Medication: Prescription Given Home Medications: Home Meds Pnv No.95/Ferrous Fum/Folic AC [ Vitamin Tablet] 1 tab PO DAILY 08/25/21 [History] Patient Handouts: Baby Blues, Care After Vaginal Delivery Referrals: Bernadette Alberto,Paulina [Ordering Only Provider] - Viky Gonzalez MD [Physician] - (Please call Bernadette Alberto to verify appointment date and time for 6 week follow-up) - Discharge Summary/Plan Comment DC Time >30 min.: Yes Total # of Minutes for Discharge Time: >30mns - General Info Date of Service: 08/29/21 Admission Dx/Problem (Free Text: Patient Status Order with Admit Dx/Problem 08/28/21 09:49 Patient Status [ADT] Routine Admission Diagnosis/Problem Admission Diagnosis/Problem Subjective Update: Mom is doing well. Anticipated discharge today Functional Status: Reports: Pain Controlled - Review of Systems General: Reports: No Symptoms HEENT: Reports: No Symptoms Pulmonary: Reports: No Symptoms Cardiovascular: Reports: No Symptoms Gastrointestinal: Reports: No Symptoms Genitourinary: Reports: No Symptoms Musculoskeletal: Reports: No Symptoms Skin: Reports: No Symptoms Neurological: Reports: No Symptoms Psychiatric: Reports: No Symptoms - Patient Data Vitals - Most Recent: Last Vital Signs Temp 97.8 F 08/29/21 16:00 Pulse 72 08/29/21 16:00 Resp 18 08/29/21 16:00 BP 95/56 L 08/29/21 16:00 Pulse Ox 98 08/29/21 16:00 Weight - Most Recent: 72.575 kg I&O - Last 24 hours: Intake & Output 08/29/21 08/29/21 08/29/21 06:59 14:59 22:59 Intake Total 1060 Output Total 2650 400 Balance -1590 -400 Lab Results - Last 24 hrs: Laboratory Results - last 24 hr 08/29/21 Range/Units 05:04 Hgb 7.6 L (12.0-16.0) g/dL Hct 23.1 L (36.0-46.0) % Med Orders - Current: Current Medications Bisacodyl (Bisacodyl 10 Mg Supp) 10 mg RECTAL ONETIME PRN PRN Reason: Constipation Diphenhydramine HCl (Diphenhydramine 50 Mg/Ml Sdv) 25 mg IVPUSH Q6H PRN PRN Reason: Itching or Nausea Docusate Sodium (Docusate Sodium 100 Mg Cap) 100 mg PO BID [facility] Last Admin: 08/29/21 08:01 Dose: 100 mg Documented by: Emollient Ointment (Lanolin 100% Cream 7 Gm Tube) 0 gm TOP ASDIRECTED PRN PRN Reason: Sore Nipples Oxytocin/Sodium Chloride (Oxytocin 30 Unit In Ns 0.9% 500 Ml Premix) 30 unit in 500 mls @ 250 mls/hr IV TITRATE [facility] Lactated Ringer's (Ringers, Lactated) 1,000 mls @ 500 mls/hr IV BOLUS [facility] Last Admin: 08/28/21 10:40 Dose: 500 mls/hr Documented by: Lactated Ringer's (Ringers, Lactated) 1,000 mls @ 125 mls/hr IV ASDIRECTED [facility] Last Admin: 08/28/21 16:54 Dose: 125 mls/hr Documented by: Oxytocin/Lactated Ringer's (Pitocin In Lr 30 Units/500 Ml) 30 unit in 500 mls @ 2 mls/hr IV TITRATE [facility]; Protocol Tranexamic Acid 1,000 mg/ (Sodium Chloride) 110 mls @ 660 mls/hr IV ONETIME PRN PRN Reason: Bleeding Ibuprofen (Ibuprofen 800 Mg Tab) 800 mg PO Q8H PRN PRN Reason: Cramping Methylergonovine Maleate (Methylergonovine 0.2 Mg/1 Ml Amp) 0.2 mg IM ONETIME PRN PRN Reason: Excessive Vaginal Bleeding Misoprostol (Misoprostol 200 Mcg Tab) 1,000 mcg RECTAL ONETIME PRN PRN Reason: excessive bleeding Ondansetron HCl (Ondansetron 4 Mg/2 Ml Sdv) 4 mg IVPUSH Q4H PRN PRN Reason: Nausea/Vomiting Oxycodone/Acetaminophen (Acetaminophen/Oxycodone 325-5 Mg Tab) 1 tab PO Q4H PRN PRN Reason: Pain (severe 7-10) Oxycodone/Acetaminophen (Acetaminophen/Oxycodone 325-5 Mg Tab) 2 tab PO Q4H PRN PRN Reason: Pain (severe 7-10) Oxytocin (Oxytocin 10 Units/1 Ml Sdv) 10 unit IM ASDIRECTED PRN PRN Reason: Excessive Vaginal Bleeding Sodium Chloride (Sodium Chloride 0.9% 10 Ml Syringe) 10 ml FLUSH ASDIRECTED PRN PRN Reason: Keep Vein Open Sodium Chloride (Sodium Chloride 0.9% 2.5 Ml Syringe) 2.5 ml FLUSH ASDIRECTED PRN PRN Reason: Keep Vein Open Sodium Chloride (Sodium Chloride 0.9% 20 Ml Sdv) 10 ml IV ASDIRECTED PRN PRN Reason: IV Use Discontinued Medications Citric Acid/Sodium Citrate (Citric Acid/Sodium Citrate Solution 30 Ml Cup) 30 ml PO ONETIME ONE Stop: 08/28/21 09:49 Dexamethasone (Dexamethasone 4 Mg/Ml Sdv) Confirm Administered Dose 8 mg .ROUTE .STK-MED ONE Stop: 08/28/21 11:49 Diphenhydramine HCl (Diphenhydramine 50 Mg/Ml Sdv) Confirm Administered Dose 50 mg .ROUTE .STK-MED ONE Stop: 08/28/21 13:17 Ephedrine Sulfate (Ephedrine 50 Mg/Ml Sdv) Confirm Administered Dose 50 mg .ROUTE .STK-MED ONE Stop: 08/28/21 13:17 Epinephrine HCl (Epinephrine 1 Mg/1 Ml Amp) Confirm Administered Dose 1 mg .ROUTE .STK-MED ONE Stop: 08/28/21 13:18 Famotidine (Famotidine 20 Mg/2 Ml Sdv) Confirm Administered Dose 20 mg .ROUTE .STK-MED ONE Stop: 08/28/21 11:49 Fentanyl (Fentanyl 100 Mcg/2 Ml Sdv) Confirm Administered Dose 100 mcg .ROUTE .STK-MED ONE Stop: 08/28/21 11:45 Fentanyl (Fentanyl 100 Mcg/2 Ml Sdv) Confirm Administered Dose 100 mcg .ROUTE .STK-MED ONE Stop: 08/28/21 12:45 Glycopyrrolate (Glycopyrrolate 0.2 Mg/Ml Sdv) Confirm Administered Dose 0.4 mg .ROUTE .STK-MED ONE Stop: 08/28/21 13:17 Cefazolin Sodium/Dextrose 2 gm (/ Premix) 50 mls @ 100 mls/hr IV ONETIME ONE Stop: 08/28/21 10:17 Sterile Water (Sterile Water For Injection) Confirm Administered Dose 40 mls @ as directed .ROUTE .STK-MED ONE Stop: 08/28/21 13:18 Acetaminophen (Ofirmev 1000 Mg/100 Ml) Confirm Administered Dose 100 mls @ as directed .ROUTE .STK-MED ONE Stop: 08/28/21 13:18 Cefazolin Sodium/Dextrose (Ancef) Confirm Administered Dose 50 mls @ as directed .ROUTE .STK-MED ONE Stop: 08/28/21 13:18 Ketorolac Tromethamine (Ketorolac 30 Mg/Ml Sdv) 30 mg IVPUSH Q6H [facility] Stop: 08/29/21 13:46 Last Admin: 08/29/21 14:44 Dose: 30 mg Documented by: Metoclopramide HCl (Metoclopramide 10 Mg/2 Ml Sdv) Confirm Administered Dose 10 mg .ROUTE .STK-MED ONE Stop: 08/28/21 13:17 Miscellaneous Medication (Phenylephrine Hcl In 0.9% Nacl 1 Mg/10 Ml Syringe) Confirm Administered Dose 1 mg .ROUTE .STK-MED ONE Stop: 08/28/21 13:17 Octyl Cyanoacrylate (Octyl 2-Cyanoacrylate 1 Tube) Confirm Administered Dose 1 applic .ROUTE .STK-MED ONE Stop: 08/28/21 09:59 Ondansetron HCl (Ondansetron 4 Mg/2 Ml Sdv) Confirm Administered Dose 4 mg .ROUTE .STK-MED ONE Stop: 08/28/21 11:49 Ondansetron HCl (Ondansetron 4 Mg/2 Ml Sdv) Confirm Administered Dose 4 mg .ROUTE .STK-MED ONE Stop: 08/28/21 13:17 - Exam General: Reports: Alert, Oriented Lungs: Reports: Normal Respiratory Effort Cardiovascular: Reports: Regular Rate GI/Abdominal Exam: Soft, Non-Tender Extremities: Normal Inspection Psy/Mental Status: Reports: Alert, Normal Affect, Normal Mood
[2021-08-29] MEDS ORDERED: Ibuprofen 800 MG Tab PO PRN (19:45)
--- NOTE | 2021-09-01 06:58 | OR ---
SURGEON: Viky Edmonds MD DATE OF PROCEDURE: 08/28/2021 INDICATIONS FOR SURGERY: Term , history of prior . PREOPERATIVE DIAGNOSES: Term , repeat low transverse section. POSTOPERATIVE DIAGNOSES: Term , repeat low transverse section, livebirth. OPERATION: Repeat low transverse section. PRIMARY SURGEON: Viky Edmonds MD and Joseph Sharma MD BRAKE RIDER: None. ANESTHESIA: Spinal. ANESTHESIOLOGIST: Mir Pathak CRNA. INTRAOPERATIVE FLUID REPLACEMENT: 2000 mL. ESTIMATED BLOOD LOSS: 400 mL. URINE OUTPUT: 125 mL. DRAIN AND PACK: Foreman catheter draining clear liquid. SPECIMEN: None. FINDING DETAILS: Life female , score 7 and 9, weight 2940 g. PLACENTA DELIVERY METHOD: Spontaneous. MATERNAL DELIVERY COMPLICATIONS: None. COMPLICATIONS: None. TECHNIQUE: Roseanna Romano was taken to the operating room. She was then transferred to the operating table and placed in a dorsal supine position with a left wall tilt. After adequate anesthesia was confirmed, she was prepped and draped in the usual sterile fashion. A time-out was completed. With IV fluid running and Foreman catheter draining, a Pfannenstiel skin incision was made. The incision was carried down with the Bovie cautery through the subcutaneous tissue to the underlying rectus fascia and the rectus fascia was incised in the midline and extended laterally. The underlying rectus muscle was dissected off. Then, in the midline and the parietal peritoneum was opened. A self- retaining retractor was placed and the lower uterine segment was identified in the surgical field. A bladder flap was made and the lower uterine segment was incised in a transverse fashion. The incision was extended laterally and the infant's vertex was delivered atraumatically followed by the reminder of the infant. The cord was clamped and cut and the was handed off to the pediatric staff. Some blood was collected for possible cord gases. The placenta was delivered spontaneously. The uterus was cleaned of all clots and debris and the incision was reapproximated with a running lock stitch fashion utilizing a PDS suture. Utilizing a 0 Vicryl, a second stitch running imbricating the first layer was performed utilizing another 0 Vicryl. Hemostasis was excellent. The self-retaining retractor was removed and the peritoneum was closed with a running stitch fashion utilizing a 3-0 Vicryl. The rectus fascia was reapproximated with a PDS suture. The subcutaneous tissue was closed utilizing a 3-0 Vicryl. Hemostasis was excellent. The skin was then closed with a 4-0 Monocryl in a subcuticular fashion. All sponges, needle, and instrument counts were correct per the OR nursing staff. The patient was taken back to the recovery room in a stable condition. Prior to the surgery, patient had received 2 g of Ancef. MARY SANCHEZ /[id number]
== END 2021-08-29 19:15 | disposition home or self-care (01) | DRG 540 ==
LOC: MW.OB 08-28 11:17
PROVIDERS: ADMIT Obstetrics & Gynecology Obstetrics; ATTEND Obstetrics & Gynecology Obstetrics
PROC: 10D00Z1 Extraction of Products of Conception, Low, Open Approach (ICD-10-PCS; principal; 2021-08-28)
DX: O34.211 Maternal care for low transverse scar from previous cesarean delivery (principal); Z3A.39 39 weeks gestation of pregnancy; Z37.0 Single live birth; O69.81X0 Labor and delivery complicated by cord around neck, without compression, not applicable or unspecified; Z20.822 Contact with and (suspected) exposure to COVID-19
CPT/HCPCS: 36415; 85014; 85018; 85027; 86592; 86850; 86900; 86901; 86920; 86921; 86922; A9270-GY; J0131; J0171; J0690; J1100; J1200; J1885; J2370; J2405; J2765; J3010; J3490; J7120; U0002